=== PATIENT | male | born 1955 | race Caucasian/White ===

== ENCOUNTER 2016-10-08 10:38 | Emergency (ER) | payer SELFPAY ==
[~2016-10-08] VITALS: Ht 172.7 cm; Wt 98.0 kg
[~2016-10-08 10:38] MED LIST: AMLO5TAB22 PO; OMEP20TA PO; PILO5 PO
[2016-10-08 10:40] VITALS: BP 153/94; PULSE 84; RESP 20; TEMP 97.7; O2SAT 97
== END 2016-10-08 11:23 | disposition left against medical advice (07) ==
LOC: NED 10:38
DX: S69.90XA Unspecified injury of unspecified wrist, hand and finger(s), initial encounter (principal); X58.XXXA Exposure to other specified factors, initial encounter; Z53.21 Procedure and treatment not carried out due to patient leaving prior to being seen by health care provider
CPT/HCPCS: 99281

== ENCOUNTER → 2017-01-08 | Day surgery (SDC) | payer OTHER ==
[~2017-01-08] MED LIST changes: +ACETAMINOPHEN 1000 MG/100 ML 100 ML IV ONE; +BUPIVACAINE/EPINEPHRINE 0.25% 50 ML VIAL ONE; +ISOSULFAN BLUE 50 MG/5 ML VIAL SQ ONE; +KETOROLAC TROMETHAMINE 30 MG/ML (IVP) VIAL ONE; +LACTATED RINGER'S 1000 ML INJ 1,000 ML ONE; +LIDOCAINE 1.5%/EPINEPHrine 1:200,000 PF SOLN 30 ML AMP ONE; +LIDOCAINE 2%/EPINEPHrine PF 1:200,000 20ML SDV ONE; +LIDOCAINE HCL 1% 50 ML VIAL ONE; +MEPERIDINE HCL 50 MG/ML VIAL ONE; +MIDAZOLAM HCL 2 MG/2 ML VIAL ONE; +MORPHINE SULFATE 4 MG/ML INJ ONE; +ONDANSETRON HCL 4 MG/2 ML VIAL IV PUSH ONE; +PROPOFOL 200 MG/20 ML AMP IV ONE; +oxyCODONE/ACETAMINOPHEN 5 MG/325 MG TAB ONE
--- NOTE | 2017-01-08 13:32 | MP ---
cc: DARRELL MASTERSON DATE OF SURGERY January 08, 2017 PREOPERATIVE DIAGNOSIS Malignant melanoma right lower abdominal wall. POSTOPERATIVE DIAGNOSIS Malignant melanoma right lower abdominal wall. PROCEDURE 1. We wide excision malignant melanoma right lower abdominal wall. 2. Right groin sentinel lymph node biopsy. SURGEON MD [facility] Fernando Thomas, 3 ANESTHESIA General OPERATIVE PROCEDURE The patient was brought to the operating room after having undergone injection for sentinel node biopsy. After satisfactory general anesthesia had been obtained, the abdomen and groin were prepped and draped in the usual sterile fashion. 0.25% Marcaine with epinephrine was used to infiltrate the skin for local anesthesia. The area of highest radioactivity was identified lymph on the skin and the skin incision was made transversely in the right groin, carried down sharply through the subcutaneous tissue with the cautery being used for hemostasis. Incision was deepened into the fatty tissue where the radioactivity was traced to the sentinel node. It had extremely high counts and was grasped with an Allis forceps. It was dissected free with a harmonic scalpel and passed for permanent pathology with a stitch marking the sentinel node. The remainder of the groin had minimal background activity. Hemostasis was strictly assured after which the subcutaneous tissue was closed with interrupted 3-0 Vicryl suture and the skin closed with interrupted 4-0 Monocryl subcuticular stitches. Attention was then turned to the melanoma site. A 2-cm margin was marked around the lesion on all sides. An elliptical skin incision was then marked with a sterile pen and 0.25% Marcaine with epinephrine was infiltrated in the skin for local anesthesia. The elliptical skin incision was made and carried down sharply through the subcutaneous tissue with the cautery being used for hemostasis. It was then dissected free from the subjacent fatty tissue using the cautery and marked with sutures to orient it for pathology. It was sent for permanent pathology. Hemostasis was strictly assured and the subcutaneous tissue was then undermined to allow as much of a tension-free closure as possible. The closure was effected with interrupted 2-0 Vicryl sutures for the fatty tissue and deep dermis after which the skin was closed with a running 4-0 PDS subcuticular stitch. Steri-Strips were applied to both incisions as was a sterile dressing. The patient was then awakened and taken from the operating room in satisfactory condition having tolerated procedure without problem. Estimated blood loss was less than 10 mL. The instrument count, sponge count and needle counts were reported as being correct x2 at the end of procedure. Darrell Masterson MD [facility] /1:09 PM /1:23 PM
== END | disposition home or self-care (01) ==
LOC: ESDC 06:36
PROVIDERS: ATTEND Surgery
DX: C43.59 Malignant melanoma of other part of trunk (principal)
CPT/HCPCS: 00400; 11606; 38510; 38792; 88305; 88307; 88341; 88342; J0131; J1885; J2175; J2250; J2270; J2405; J3010; J7120; Q9968